=== PATIENT | female | born 1995 | race Caucasian/White ===

== ENCOUNTER 2017-10-21 02:05 | Emergency (ER) | payer BC ==
[~2017-10-21] VITALS: Ht 157.5 cm; Wt 95.0 kg
[~2017-10-21 02:05] MED LIST: OMEPRAZOLE40 M1 PO; ZOFRAN4 MG PO
[2017-10-21] MEDS ORDERED: PREDNISONE10 M1 PO (02:42)
[2017-10-21 02:49] VITALS: BP 122/70
== END 2017-10-21 02:50 | disposition home or self-care (01) ==
LOC: EME 02:05
DX: L23.7 Allergic contact dermatitis due to plants, except food (principal)
CPT/HCPCS: 99281; 99284; J7512